=== PATIENT | male | born 1935 | race Caucasian/White ===

== ENCOUNTER 2016-12-03 12:50 | Outpatient (CLI) | payer MEDICARE, BC ==
[~2016-12-03] VITALS: Ht 188 cm; Wt 68.1 kg
[~2016-12-03 12:50] MED LIST: ASPIR-LOW81 MG PO; FISH OIL1 IU PO; LISINOPRIL PO
[2016-12-03] MEDS ORDERED: PRINZIDE 12.5 M1 TA1 PO (13:51)
[2016-12-03] MEDS ORDERED: SYNTHROID 0.0.025 MG PO (13:52)
[2016-12-03] MEDS ORDERED: REMERON 15M15 MG/TA1 PO (13:53)
[2016-12-03] MEDS ORDERED: PRILOSEC 20MG20 MG PO (13:53)
[2016-12-03] MEDS ORDERED: ELIQUIS 2.5 PO (13:53)
[2016-12-03] MEDS ORDERED: EPA FISH OIL1 SGL PO (13:54)
[2016-12-03] MEDS ORDERED: MASON NATURAL2000 IU PO (13:55)
[2016-12-03 14:01] VITALS: BP 112/67; PULSE 52; TEMP 97.6
[2016-12-03 14:56] VITALS: BP 137/78; PULSE 61
== END 2016-12-03 15:08 | disposition home or self-care (01) ==
LOC: COL.CAR 12:50
DX: I48.0 Paroxysmal atrial fibrillation (principal); I48.3 Typical atrial flutter; R00.2 Palpitations; I83.93 Asymptomatic varicose veins of bilateral lower extremities; Z79.01 Long term (current) use of anticoagulants; I12.9 Hypertensive chronic kidney disease with stage 1 through stage 4 chronic kidney disease, or unspecified chronic kidney disease; N18.9 Chronic kidney disease, unspecified; Z80.9 Family history of malignant neoplasm, unspecified; Z82.3 Family history of stroke; I70.1 Atherosclerosis of renal artery
CPT/HCPCS: 27124; C1764

== ENCOUNTER 2017-02-15 12:26 | Day surgery (SDC) | payer MEDICARE, BC ==
[2017-02-15] VITALS (8 sets, daily range): BP systolic 114–153; BP diastolic 59–85; PULSE 60–73; TEMP 98.2–98.3
[~2017-02-15] VITALS: Ht 188 cm; Wt 69.1 kg
[~2017-02-15 12:26] MED LIST changes: +ELIQUIS 2.5 PO; +EPA FISH OIL1 SGL PO; +MASON NATURAL2000 IU PO; +PRILOSEC 20MG20 MG PO; +PRINZIDE 12.5 M1 TA1 PO; +REMERON 15M15 MG/TA1 PO; +SYNTHROID 0.0.025 MG PO
[2017-02-15 12:49] LABS: MEAN CELL VOLUME 97 fl (80.0-100.0); MEAN CORPUSCULAR HGB CONC 34 g/dl (33.0-37.0); MEAN PLATELET VOLUME 10.3 fl (7.4-10.4); PLATELET COUNT 146 K/mm3 (130-400); RED BLOOD COUNT 3.49 M/mm3 (4.20-5.60); WHITE BLOOD COUNT 5.3 K/mm3 (4.8-10.8)
[2017-02-15 12:51] LABS: HEMATOCRIT 33.7 % (42.0-52.0); HEMOGLOBIN 11.5 g/dl (13.5-18.0); MEAN CORPUSCULAR HEMOGLOBIN 33 pg (27.0-31.0)
[2017-02-15 12:54] LABS: INR 1.1 (0.8-3.0); PROTHROMBIN TIME 13.1 SECONDS (9.7-12.8)
[2017-02-15 13:00] LABS: CALCIUM 9.7 mg/dL (8.4-10.2); CREATININE, serum 1.49 mg/dL (0.66-1.25); POTASSIUM 4.3 mmol/L (3.4-5.0)
[2017-02-16 03:37] VITALS: BP 129/76; PULSE 77; TEMP 99.4
[2017-02-16 07:16] VITALS: BP 104/69; PULSE 74; TEMP 99.6
[2017-02-16 09:00] VITALS: BP 116/58; PULSE 106
[2017-02-16 10:54] VITALS: BP 111/56; PULSE 97; TEMP 98.2
[2017-02-16] MEDS ORDERED: CEPHALEXIN500 M1 PO (11:47)
[2017-02-16] MEDS ORDERED: LOPRESSOR 225 MG/TAB PO (11:48)
== END 2017-02-16 15:21 | disposition home or self-care (01) ==
LOC: COL.CAR 12:26 → MEDICAL 12:26 → COL.CAR 12:45 → MEDICAL 17:51 → COL.CAR 02-16 15:21
PROVIDERS: Internal Medicine Interventional Cardiology
DX: I49.5 Sick sinus syndrome (principal); I48.0 Paroxysmal atrial fibrillation; Z79.01 Long term (current) use of anticoagulants; Z95.0 Presence of cardiac pacemaker; Z80.9 Family history of malignant neoplasm, unspecified; Z82.3 Family history of stroke; Z87.01 Personal history of pneumonia (recurrent); Z68.1 Body mass index [BMI] 19.9 or less, adult; N18.9 Chronic kidney disease, unspecified
CPT/HCPCS: OP; C1785; C1894; C1898; J0690; J2250; J3010; J7030